=== PATIENT | female | born 1955 | race Caucasian/White ===

== ENCOUNTER 2016-12-14 18:22 | Emergency (ER) | payer OTHER ==
[~2016-12-14] VITALS: Ht 167.6 cm; Wt 124.7 kg
--- NOTE | 2016-12-14 18:24 | NUR ---
PT AMBULATORY TO ER BED 11. C/O COUGH AND CONGESTION X 2 WEEKS NOW. PT STATES TOOK Z PACK W/ NO RELIEFE AND SIDE EFFECTS THAT INCLUDES DIARRHEA AND WEAKNESS. GOWNED AND PLACED ON MONITOR. NAD NOTED. AWAITING MD JENKINS.
--- NOTE | 2016-12-14 18:52 | NUR ---
DR CALL AT BEDSIDE FOR EVAL.
[2016-12-14] MEDS ORDERED: ALBUTEROL FS 2.5 MG/0.5 ML VIAL.NEB NEB ONE (19:00)
--- NOTE | 2016-12-14 19:05 | NUR ---
RT AT BEDSIDE FOR BREATHING TREATMENT.
[2016-12-14] MEDS ORDERED: ALBUTEROL FS 2.5 MG/0.5 ML VIAL.NEB ONE (19:09)
--- NOTE | 2016-12-14 19:57 | NUR ---
Patient discharged to home in stable condition. Written and verbal after care instructions given. Patient verbalizes understanding of instruction.
[2016-12-14 19:58] VITALS: BP 152/67
== END 2016-12-14 20:00 | disposition home or self-care (01) ==
LOC: ER 18:34
DX: J20.9 Acute bronchitis, unspecified (principal); E78.00 Pure hypercholesterolemia, unspecified; I10 Essential (primary) hypertension; E03.9 Hypothyroidism, unspecified; F17.200 Nicotine dependence, unspecified, uncomplicated; Z98.890 Other specified postprocedural states
CPT/HCPCS: 71010; 94640 ×2; 99284; A4606; Z7610